=== PATIENT | female | born 1960 | race Caucasian/White ===

== ENCOUNTER → 2017-02-21 | Outpatient (CLI) | payer OTHER ==
--- NOTE | 2017-02-21 23:38 | US ---
EXAMINATION TYPE: Ultrasound MSK right ankle, posterior tibial tendon DATE OF EXAM: 02/21/2017 COMPARISON: NONE CLINICAL HISTORY: 56-year-old female posterior tibial tendon dysfunction M76.821. Technique: Multiple sonographic images of the medial right ankle for assessment of the posterior tibi al tendon. FINDINGS: Along the supramalleolar portion, there is spurring involving the anterior cortical margin of the dis celestine tibia along the course of the posterior tibial tendon. The tendon is thickened with some correspo nding thickening of the surrounding tenosynovium as well. At the malleolus and inframalleolar segments, the tendon remains thickened with moderate vertebral sy novial fluid and thickening nodules of synovium that show some hyperemia. There is a short segment partial split tear of the inframalleolar portion, refer to page 26 of 67. It appears that some of the distal fibers insert onto an ossicle. Additional fibers coursing beyond t he ossicle and are hypoechoic and heterogeneous containing some echogenic areas, refer to page 55 and 65 of 67. IMPRESSION: 1. Posterior tibial tendinosis with a moderate tenosynovitis. 2. There is a short segment partial split within the inframalleolar segment. No sizable or retracted tear is seen. 3. More marked tendinosis of the insertional fibers. Radiographic correlation is recommended for poss ible accessory navicular versus any potential calcifications at the insertional fibers which could re late to entities such as gout.
== END | disposition home or self-care (01) ==
LOC: RADUSWWP 10:39
PROVIDERS: ATTEND Podiatrist Foot & Ankle Surgery
DX: M76.821 Posterior tibial tendinitis, right leg (principal); M65.871 Other synovitis and tenosynovitis, right ankle and foot

== ENCOUNTER → 2018-07-29 | Outpatient (CLI) | payer BC ==
[2018-07-29 10:26] VITALS: BP 135/75; PULSE 71; RESP 18; TEMP 97; BMI 39.1
--- NOTE | 2018-07-29 11:07 | P.HPOB ---
History of Present Illness H&P Date: 07/29/18 Chief Complaint: The patient is here for her routine gynecologic exam and mammogram. This is a 57-year-old with an LMP of 1988. She is status post vaginal hysterectomy for prolapse. It has been about 2 years since her last pelvic exam. She is without gynecologic complaints. Review of Systems The patient's weight has been stable over the last year. She denies respiratory , cardiac, or G.I. problems. Past Medical History Past Medical History: Asthma (Mild), GERD/Reflux, Hypertension, Thyroid Disorder (Hypothyroid) Additional Past Medical History / Comment(s): Diverticulosis. 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 History of Any Multi-Drug Resistant Organisms: None Reported Past Surgical History: Hysterectomy (Vaginal hysterectomy 1988) Additional Past Surgical History / Comment(s): Bladder suspension. Foot surgery. Past Psychological History: No Psychological Hx Reported Smoking Status: Never smoker Past Alcohol Use History: None Reported Past Drug Use History: None Reported Additional History: She is and is not seeing anybody at this time. She works at [employer] in [place]. - Past Family History Mother Family Medical History: Cancer Additional Family Medical History / Comment(s): Lung cancer. Father Family Medical History: Myocardial Infarction ([place]) Additional Family Medical History / Comment(s): Abdominal aortic aneurysm. Sister(s) Family Medical History: Cancer Additional Family Medical History / Comment(s): Colon And gastric cancer. Another sister had diabetes. Medications and Allergies Home Medications Medication Instructions Recorded Confirmed Type Albuterol Inhaler [Ventolin Hfa 1 - 2 puff INHALATION RT-Q6H PRN 07/29/18 History Inhaler] Levothyroxine Sodium 25 mcg PO 07/29/18 History Lisinopril [Zestril] 10 mg PO DAILY 07/29/18 07/29/18 History Magnesium Oxide 400 mg PO 07/29/18 History Fulton-3 Fatty Acids [Fulton-3] 1,000 mg PO 07/29/18 History Omeprazole 20 mg PO 07/29/18 History Allergies Allergy/AdvReac Type Severity Reaction Status Date / Time iodine Allergy Swelling Unverified 07/29/18 10:17 NSAIDS (Non-Steroidal Allergy Rash/Hives Unverified 07/29/18 10:17 Anti-Inflamma Penicillins Allergy Rash/Hives Unverified 07/29/18 10:17 Sulfa (Sulfonamide Allergy Rash/Hives Unverified 07/29/18 10:17 Antibiotics) Exam Vital Signs Temp Pulse Resp BP Pulse Ox 07/29/18 10:23 97 F L 71 18 135/75 97 Intake and Output 07/28/18 07/29/18 07/29/18 22:59 06:59 14:59 Other: Weight 113.398 kg Height 5'7", weight 250 pounds, BMI 39.2. This is a well-developed well-nourished heavyset white female who is alert and oriented times 3 in no acute distress. HEENT: Within normal limits. NECK: Supple without mass or thyromegaly. CHEST AND LUNGS: Clear to auscultation. HEART: Regular rate and rhythm. BREASTS: Are without mass or discharge. AXILLARY EXAM: Negative for adenopathy. BACK: Negative for CVA tenderness. ABDOMEN: Soft, obese, nontender, without palpable masses. PELVIC EXAM: External genitalia appears normal with mild atrophy. Vagina appears normal atrophy. There is a grade 2 enterocele noted just posterior to the vaginal cuff. There is no evidence of cystocele or rectocele. Bimanual examination is negative for mass or tenderness. RECTAL EXAM: Rectovaginal exam is negative for mass or tenderness and is negative for occult blood. EXTREMITIES: Nontender. IMPRESSION: 1. 57-year-old menopausal female status post vaginal hysterectomy for benign reasons. 2. Asymptomatic grade 2 enterocele. PLAN: 1. Pap smears have been discontinued. 2. Self breast awareness was discussed with the patient. 3. Screening mammogram will be done today. 4. Osteoporosis prevention was discussed. I have stressed the importance of adequate calcium, vitamin D and regular exercise. Recommended amounts of calcium and vitamin D were also discussed. We will plan on doing the bone density again next year since she states she had a normal one done 5 years ago. 5. She will return in one year for her annual woman exam.
--- NOTE | 2018-07-30 11:36 | MM ---
Reason for exam: screening (asymptomatic). Last mammogram was performed 2 years and 1 month ago. History: Patient is postmenopausal. Benign cyst aspiration of the left breast, 2000. Physical Findings: A clinical breast exam by your physician is recommended on an annual basis and results should be correlated with mammographic findings. MG 3D Screening Mammo W/Cad Bilateral CC and MLO view(s) were taken. Prior study comparison: June 20, 2016, mammogram, performed at [facility]. June 21, 2014, mammogram, performed at [facility]. June 16, 2014, mammogram, performed at [facility]. June 06, 2011, bilateral digital screening mammo w/CAD. April 04, 2010, bilateral digital screening mammogram. There are scattered fibroglandular densities. There is no discrete abnormality. ASSESSMENT: Negative, BI-RAD 1 RECOMMENDATION: Routine screening mammogram of both breasts in 1 year.
== END | disposition home or self-care (01) ==
LOC: WWCWWP 09:48
PROVIDERS: ATTEND Obstetrics & Gynecology
DX: Z12.31 Encounter for screening mammogram for malignant neoplasm of breast (principal)
CPT/HCPCS: 77063; 77067

== ENCOUNTER → 2019-02-03 | Outpatient (CLI) | payer BC ==
--- NOTE | 2019-02-03 11:03 | BD ---
EXAMINATION TYPE: Axial Bone Density DATE OF EXAM: 02/03/2019 COMPARISON: None at this institution CLINICAL HISTORY: Z 78.0 Height: 5 FT 7 1/2 IN Weight: 249 FRAX RISK QUESTIONS: History of Fracture in Adulthood: YES Secondary Osteoporosis: RISK FACTORS HISTORY OF: Active: YES Postmenopausal woman: PART HYST AGE 28 MEDICATIONS: Thyroid Medications: YES Which medication: LEVOTHYROXINE How Long: APPROX 3 MONTHS AGO Additional Medications: LISINOPRIL ,LEVOTHYROXINE, Additional History: BILAT CARPAL TUNNEL SURG EXAM MEASUREMENTS: Bone mineral densitometry was performed using the [employer] System. Bone mineral density as measured about the Lumbar spine is: ----- L1-L4(G/cm2): 1.315 T Score Values are as follows: ----- L2: 0.8 ----- L3: 1.4 ----- L4: 2.0 ----- L1-L4: 1.1 [facility] Bone mineral density about the R hip (g/cm2): 0.965 Bone mineral density about the L hip (g/cm2): 0.987 T Score values are as follows: -----R Neck: -0.5 -----L Neck: -0.4 -----R Total: 0.2 -----L Total: 0.1 [facility] IMPRESSION: Normal (Values between +1 and -1 indicate normal bone mass). Consider repeating this study in 5 year s or sooner if there is some new clinical indication. NOTE: T-SCORE=SD OF THE YOUNG ADULT MEAN.
== END | disposition home or self-care (01) ==
LOC: RADBDWWP 08:39
PROVIDERS: ATTEND Family Medicine
DX: Z78.0 Asymptomatic menopausal state (principal)
CPT/HCPCS: 77080

== ENCOUNTER → 2020-12-05 | Outpatient (CLI) | payer BC ==
--- NOTE | 2020-12-07 08:31 | MM ---
Reason for exam: screening (asymptomatic). Last mammogram was performed 2 years and 4 months ago. History: Patient is postmenopausal. Benign cyst aspiration of the left breast, 2000. Physical Findings: A clinical breast exam by your physician is recommended on an annual basis and results should be correlated with mammographic findings. MG 3D Screening Mammo W/Cad Bilateral CC and MLO view(s) were taken. Prior study comparison: July 29, 2018, bilateral MG 3d screening mammo w/cad. June 20, 2016, mammogram, performed at [facility]. There are scattered fibroglandular densities. No significant changes when compared with prior studies. ASSESSMENT: Benign, BI-RAD 2 RECOMMENDATION: Routine screening mammogram of both breasts in 1 year.
== END | disposition home or self-care (01) ==
LOC: RADMAMWWP 12:37
PROVIDERS: ATTEND Internal Medicine Geriatric Medicine
DX: Z12.31 Encounter for screening mammogram for malignant neoplasm of breast (principal); Z78.0 Asymptomatic menopausal state
CPT/HCPCS: 77063; 77067

== ENCOUNTER → 2022-04-30 | Outpatient (CLI) | payer BC ==
[2022-04-30 15:02] LABS: Anion Gap 9.6 mmol/L (10.00-18.00); Carbon Dioxide 24.7 mmol/L (20.0-27.5); Non-African American GFR(CKD) 76.8 (60.0-200.0); Potassium 4.7 mmol/L (3.5-5.5)
[2022-04-30 15:24] LABS: Basophils # (A) 0.04 X 10*3/uL (0.00-0.10); Basophils % (A) 0.6 %; Eosinophils # (A) 0.14 X 10*3/uL (0.04-0.35); Eosinophils % (A) 2.1 %; HCT 39.2 % (37.2-46.3); HGB 12.1 g/dL (12.0-15.0); Immature Grans, Automated 0.4 %; Lymphocytes # (A) 2.23 X 10*3/uL (0.90-5.00); Lymphocytes % (A) 32.9 %; MCH 29.7 pg (27.0-32.0); MCHC 30.9 g/dL (32.0-37.0); MCV 96.1 fL (80.0-97.0); Mean Platelet Volume 11.3 fL (9.5-12.2); Monocytes # (A) 0.47 X 10*3/uL (0.20-1.00); Monocytes % (A) 6.9 %; NRBC Per 100 WBC 0 /100 WBCS (0.0-0.0); Neutrophils # (A) 3.86 X 10*3/uL (1.80-7.70); Neutrophils % (A) 57.1 %; Platelet Count 258 X 10*3/uL (140-440); RBC 4.08 X 10*6/uL (4.10-5.20); RDW 13.5 % (11.5-14.5); WBC 6.77 X 10*3/uL (4.50-10.00)
== END | disposition home or self-care (01) ==
LOC: LABPAT 10:14
PROVIDERS: ATTEND Obstetrics & Gynecology
DX: Z01.812 Encounter for preprocedural laboratory examination (principal); I10 Essential (primary) hypertension; N81.6 Rectocele
CPT/HCPCS: 80051; 82565; 82947; 84520; 85025; 87086; 93005

== ENCOUNTER 2022-05-08 08:13 | Day surgery (SDC) | payer BC ==
[2022-05-03 10:14] VITALS: BMI 34.7
--- NOTE | 2022-05-07 13:09 | HP ---
HISTORY AND PHYSICAL OR note for 05/08/22. HISTORY OF PRESENT ILLNESS: This is a 61-year-old female, who presents with an increasingly symptomatic rectocele. She has used a pessary in the past, but at this time is requesting permanent surgical repair. In addition, she saw Dr. Christy, who discussed possible sling procedure at the time of repair, and his recommendation was negative for sling procedure. She has had a previous vaginal hysterectomy for prolapse. REVIEW OF SYSTEMS: Otherwise, negative. PAST MEDICAL HISTORY: Significant for asthma, hypertension, and thyroid disease. PAST SURGICAL HISTORY: Vaginal hysterectomy in 1988 for prolapse, herniorrhaphy repair in 2013, and ankle surgery in 2018. CURRENT MEDICATIONS: 1. Calcium daily. 2. Levothyroxine 25 mcg daily. 3. Lisinopril 10 mg daily. 4. Paroxetine 10 mg daily. 5. Trazodone 100 mg at bedtime. ALLERGIES: Include Flexeril, iodine, penicillins, and nonsteroidal medications. No allergic reactions have been stated. FAMILY HISTORY: Significant for heart disease, lung cancer, and colon cancer. REPRODUCTIVE HISTORY: Normal spontaneous vaginal deliveries x2, 1976 and 1980, both unremarkable. SOCIAL HISTORY: The patient has never been a smoker. She does not use vaping, drug, or alcohol use. She does drink coffee daily. PHYSICAL EXAMINATION: VITAL SIGNS: The patient is 5 feet 7 inches, 232 pounds, blood pressure 140/100. HEENT: Exam reveals no thyromegaly. No cervical lymphadenopathy. Trachea midline. CHEST: Clear to auscultation in all lozada anteriorly and posteriorly. BREASTS: Exam reveals normal to inspection. No obvious skin changes, nipple discharge, axillary adenopathy, or discernible lesions or masses. CARDIAC: Reveals regular rate and rhythm with no murmur, click, or rub. ABDOMEN: Moderately obese. No organosplenomegaly. No CVA tenderness. PELVIC: External genitalia are well estrogenized. Vaginal vault reveals no obvious cystocele. Grade 3 rectocele noted. Adnexa are negative to palpation. There are no external hemorrhoids. FIT-negative stool sample is noted. Good sphincter tone. No lymphadenopathy is present. NEUROLOGIC: Reveals grossly oriented. Normal mood and affect. IMPRESSION: Increasingly symptomatic grade 3 rectocele, wishing surgical repair. PLAN: We have discussed other options. We reviewed the risks of surgery to include but not be exclusive of bleeding, infection, perforation or damage to the rectal wall, ureters, or urethra. Risks of anesthesia, aspiration, nerve damage, and even have all been discussed. Second opinion is offered and declined. We will proceed with rectocele repair at [facility] on 05/08/22. MMMEGL / IJN: [id number] /
[~2022-05-08 08:13] MED LIST: DEXAMETHASONE SOD PHOSPHATE 4 MG/ML 1 ML VIAL IV ONE; HYDROmorphone 0.5 MG/0.5 ML SYRINGE IVP PRN; ONDANSETRON 4 MG/2 ML VIAL IVP ONE
[2022-05-08] MEDS: LACTATED RINGERS 1,000 ML IV SCH ×2 (08:59→20:04)
[2022-05-08] MEDS ORDERED: MIDAZOLAM 2 MG/2 ML VIAL IV ONE (09:20)
[2022-05-08] MEDS ORDERED: SUCCINYLCHOLINE CHLORIDE 200 MG/10 ML VIAL IV ONE (10:00)
[2022-05-08] MEDS ORDERED: LIDOCAINE 2% INJ 20 MG/ML (2 ML VIAL) ONE (10:00)
[2022-05-08] MEDS ORDERED: PROPOFOL 10 MG/ML 20 ML VIAL IV ONE (10:00)
[2022-05-08] MEDS ORDERED: MORPHINE SULFATE (PF) 0.3 MG/0.3 ML SYR ONE (10:00)
[2022-05-08] MEDS ORDERED: fentaNYL (PF) 50 MCG/ML 2 ML AMP ONE (10:00)
[2022-05-08] MEDS ORDERED: MIDAZOLAM 2 MG/2 ML VIAL ONE (10:00)
[2022-05-08] MEDS ORDERED: BACITRACIN ZINC 500 UNIT/GM OINT 28.4 GM TUBE TOPICAL ONE (10:51)
[2022-05-08] MEDS ORDERED: VASOPRESSIN 20 UNIT/ML 1 ML VIAL IM ONE (10:51)
[2022-05-08] MEDS ORDERED: diphenhydrAMINE 50 MG/ML 1 ML VIAL IVP PRN (11:13)
[2022-05-08] MEDS ORDERED: ONDANSETRON 4 MG/2 ML VIAL IVP PRN (11:13)
[2022-05-08] MEDS ORDERED: SIMETHICONE 80 MG CHEWABLE PO PRN (11:13)
[2022-05-08] MEDS ORDERED: METOCLOPRAMIDE 5 MG/ML 2 ML VIAL IVP PRN (11:13)
--- NOTE | 2022-05-08 11:13 | P.OP ---
Date of Procedure: 05/08/22 Preoperative Diagnosis: Symptomatic grade 3-4 rectocele Postoperative Diagnosis: Same, enterocele Procedure(s) Performed: Rectocele repair Anesthesia: LAURIA Surgeon: Vidya Bella Tobacco Hanger #1: Jose Elais Rush Estimated Blood Loss (ml): 75 IV fluids (ml): 300 Urine output (ml): 120 Pathology: none sent Condition: stable Disposition: PACU Description of Procedure: Patient is brought to the operating suite where a general anesthetic is administered after spinal with Duramorph has been placed. Antibiotics are given. She's placed in the dorsal lithotomy position. The vagina and perineal bodies are all prepped and draped in the usual sterile fashion. Sequential ITZEL stockings are placed. The appropriate timeout is performed to assure proper patient and procedural identification. The bladder is drained for approximately 120 mL of clear yellow urine. A triangular portion of tissue is removed from the perineal body with a scalpel. The posterior vaginal mucosa is injected with a dilute Pitressin solution. Metzenbaum scissors are used in the midline to undermine the mucosa to the apex of the defect. The edges are held with Allis clamps and a fanlike fashion. Sponge rolled finger is used to sweep the underlying fascial plane from the overlying mucosa. 2-0 Vicryl sutures used in an interrupted fashion to bring the edges of the fascia together thereby completely eliminating the rectocele. At the apex of the rectocele a small cystocele was also encountered. This is well approximated with interrupted sutures. Metzenbaum scissors are used to trim the redundant mucosa. 2-0 Vicryl is used in a running locking fashion to close the posterior vaginal wall. Episiotomy- like repair is done to completion. Stitch line is inspected, noted to be clean and dry. Vagina is packed with one-inch iodophor gauze with basic tracing. Sotelo catheter is placed, urine is clear. Rectal exam reveals no foreign bodies or defects. All sponge needle and enhancement counts are correct at the end of the procedure. Total estimated blood loss 75 mL, fluid replacement 300 mL, urine 120 mL plus. Patient is brought back to the recovery room in very good condition with stable vital signs including blood pressure 109/65, pulse 46, 98% O2 saturation.
[2022-05-08 11:22] VITALS: RESP 16
[2022-05-08] MEDS: SENNOSIDES-DOCUSATE SODIUM 1 EACH TAB PO SCH (20:05)
[2022-05-09] MEDS: LACTATED RINGERS 1,000 ML IV SCH (04:21)
[2022-05-09] MEDS: SENNOSIDES-DOCUSATE SODIUM 1 EACH TAB PO SCH (07:43)
[2022-05-09 07:48] VITALS: BP 111/69; PULSE 56; TEMP 98.8
--- NOTE | 2022-05-09 08:09 | P.DS ---
Providers Date of admission: 05/09/22 Attending physician: Vidya Bella Primary care physician: [facility] Course: This is a 61-year-old female who presented with increasingly symptomatic grade 3-4 rectocele, requesting surgical repair. Please see my dictated history and physical for details. Yesterday patient underwent rectocele repair, vaginal packing was placed along with Sotelo catheter. She did very well intraoperatively, received a spinal with Duramorph with excellent results. No unusual findings in the operating room, please see my dictated operative note for details. This morning the patient is doing well. She is voiding, ambulating, and has minimal vaginal discharge. She has no pain. Vital signs are stable and she has remained afebrile. Patient is judged to be in very good condition for discharge home. She is reminded to keep the bowels moving, Metamucil daily, increase fruits and vegetables and fiber, increased water and walking. She will use [id number] Tylenol products as needed for pain. No intercourse, tampons, heavy lifting or activities. She will call me with any vaginal bleeding, pain not alleviated by [id number] products, difficulties with defecation, or indeed with any concerns. Follow-up in the office in 2 weeks. Assessment: Doing well first postoperative day Patient Condition at Discharge: Good Plan - Discharge Summary Discharge Rx Participant: No New Discharge Prescriptions: No Action lisinopriL [Zestril] 10 mg PO DAILY Levothyroxine Sodium 25 mcg PO DAILY PARoxetine [Paxil] 10 mg PO HS Calcium Carb/Mag Ox/Zinc Sulf [Oyo-Nzs-Pgbu 334-134-5 mg Tab] 1 each PO HS traZODone HCL [Desyrel] 100 mg PO HS Glucosamine/Chondr Conley A Sod [Osteo Bi-Flex Caplet] 1 each PO DAILY Discharge Medication List Levothyroxine Sodium 25 mcg PO DAILY 07/29/18 [History] lisinopriL [Zestril] 10 mg PO DAILY 07/29/18 [History] Calcium Carb/Mag Ox/Zinc Sulf [Eqq-Ovw-Oina 334-134-5 mg Tab] 1 each PO HS 05/03/22 [History] Glucosamine/Chondr Conley A Sod [Osteo Bi-Flex Caplet] 1 each PO DAILY 05/03/22 [History] PARoxetine [Paxil] 10 mg PO HS 05/03/22 [History] traZODone HCL [Desyrel] 100 mg PO HS 05/03/22 [History] Follow up Appointment(s)/Referral(s): Vidya Bella MD [STAFF PHYSICIAN] - 2 Weeks Discharge Disposition: HOME SELF-CARE
[2022-05-09] MEDS ORDERED: ACETAMINOPHEN TAB 325 MG TAB PO PRN (11:14)
--- NOTE | 2022-05-10 19:46 | P.PN ---
Progress Note - Text 05/09/22 638am 61-year-old female status post rectocele repair by Dr. Bella. Patient seen and evaluated for postop pain control, she has a VAS of 3 with no complains of nausea vomiting or pruritus.
== END 2022-05-09 11:59 | disposition home or self-care (01) ==
LOC: OR 08:13 → 4FBP 10:53 → OR 05-09 11:59
PROVIDERS: ATTEND Obstetrics & Gynecology
DX: N81.6 Rectocele (principal); E07.9 Disorder of thyroid, unspecified; I10 Essential (primary) hypertension; J45.909 Unspecified asthma, uncomplicated; Z80.1 Family history of malignant neoplasm of trachea, bronchus and lung; Z82.49 Family history of ischemic heart disease and other diseases of the circulatory system; Z88.0 Allergy status to penicillin; Z88.8 Allergy status to other drugs, medicaments and biological substances; Z79.899 Other long term (current) drug therapy; Z79.890 Hormone replacement therapy
CPT/HCPCS: 86900; 86901; 86850; 45560; J2250; J1200; J1100; J2765; J0690; J2405

== ENCOUNTER → 2022-08-17 | Outpatient (CLI) | payer BC ==
--- NOTE | 2022-08-20 08:06 | MM ---
Reason for Exam: Screening (asymptomatic). Last mammogram was performed 1 year(s) and 8 month(s) ago. Patient History: Menarche at age 11. First Full-Term at age 16. Hysterectomy at age 28. Postmenopausal. 2000, Benign Cyst Aspiration on the left side. Risk Values: Joya 5 year model risk: 1.1%. NCI Lifetime model risk: 5.0%. Prior Study Comparison: 06/20/2016 Screening Mammogram, [facility]. 07/29/2018 Bilateral Screening Mammogram, [facility]. 12/05/2020 Bilateral Screening Mammogram, [facility]. Tissue Density: The breast tissue is heterogeneously dense. This may lower the sensitivity of mammography. Findings: Analyzed By CAD. There is no suspicious group of microcalcifications or new suspicious mass in either breast. Overall Assessment: Negative, BI-RAD 1 Management: Screening Mammogram of both breasts in 1 year. A clinical breast exam by your physician is recommended on an annual basis and results should be correlated with mammographic findings. Electronically signed and approved by: Pro Stover M.D. Radiologis
== END | disposition home or self-care (01) ==
LOC: RADMAMWWP 11:40
PROVIDERS: ATTEND Internal Medicine Geriatric Medicine
DX: Z12.31 Encounter for screening mammogram for malignant neoplasm of breast (principal); Z78.0 Asymptomatic menopausal state
CPT/HCPCS: 77063; 77067

== ENCOUNTER → 2023-01-15 | Day surgery (SDC) | payer BC ==
[2023-01-10 10:41] VITALS: BMI 31.8
[~2023-01-15] MED LIST changes: -DEXAMETHASONE SOD PHOSPHATE 4 MG/ML 1 ML VIAL IV ONE; -HYDROmorphone 0.5 MG/0.5 ML SYRINGE IVP PRN; +LACTATED RINGERS 1,000 ML IV ONE; +LACTATED RINGERS 1,000 ML IV SCH; -ONDANSETRON 4 MG/2 ML VIAL IVP ONE; +PROPOFOL 10 MG/ML 20 ML VIAL IV ONE
[2023-01-15 11:14] VITALS: TEMP 98
--- NOTE | 2023-01-15 11:28 | P.GSHP ---
History of Present Illness H&P Date: 01/15/23 Chief Complaint: Colon cancer screening 62-year-old female here for colonoscopy. Last colonoscopy 10 years ago or so. Family history of colon cancer in her sister. No bowel complaints. Past Medical History Past Medical History: Asthma, GERD/Reflux, Hypertension, Thyroid Disorder Additional Past Medical History / Comment(s): Diverticulosis. History of Any Multi-Drug Resistant Organisms: None Reported Past Surgical History: Hysterectomy Additional Past Surgical History / Comment(s): Bladder suspension, Foot surgery, rectocele repair Past Anesthesia/Blood Transfusion Reactions: No Reported Reaction Past Psychological History: No Psychological Hx Reported Smoking Status: Never smoker Past Alcohol Use History: None Reported Past Drug Use History: None Reported - Past Family History Mother Family Medical History: Cancer Additional Family Medical History / Comment(s): Lung cancer. Father Family Medical History: Myocardial Infarction ([place]) Additional Family Medical History / Comment(s): Abdominal aortic aneurysm. Sister(s) Family Medical History: Cancer Additional Family Medical History / Comment(s): Colon And gastric cancer. Another sister had diabetes. Medications and Allergies Home Medications Medication Instructions Recorded Confirmed Type Levothyroxine Sodium 25 mcg PO DAILY 07/29/18 01/15/23 History lisinopriL [Zestril] 10 mg PO DAILY 07/29/18 01/15/23 History Calcium Carb/Mag Ox/Zinc Sulf 1 each PO HS 05/03/22 01/15/23 History [Fuf-Rmd-Kkey 334-134-5 mg Tab] Glucosamine/Chondr Conley A Sod [Osteo 1 each PO DAILY 05/03/22 01/15/23 History Bi-Flex Caplet] PARoxetine [Paxil] 10 mg PO HS 05/03/22 01/15/23 History traZODone HCL [Desyrel] 100 mg PO HS 05/03/22 01/15/23 History Allergies Allergy/AdvReac Type Severity Reaction Status Date / Time iodine Allergy Swelling Verified 01/15/23 11:15 NSAIDS (Non-Steroidal Allergy Rash/Hives Verified 01/15/23 11:15 Anti-Inflamma Penicillins Allergy Rash/Hives Verified 01/15/23 11:15 Sulfa (Sulfonamide Allergy Rash/Hives Verified 01/15/23 11:15 Antibiotics) Surgical - Exam Vital Signs Temp Pulse Resp BP Pulse Ox 98 F 65 16 153/70 98 08/22/23 11:13 01/15/23 11:13 01/15/23 11:13 01/15/23 11:13 01/15/23 11:13 Physical exam: General: Well-developed, well-nourished HEENT: Normocephalic, sclerae nonicteric Abdomen: Nontender, nondistended Extremities: No edema Neuro: Alert and oriented Assessment and Plan (1) Colon cancer screening Narrative/Plan: Will proceed with colonoscopy at this time. Current Visit: Yes Status: Acute Code(s): Z12.11 - ENCOUNTER FOR SCREENING FOR MALIGNANT NEOPLASM OF COLON SNOMED Code(s): 480534513
--- NOTE | 2023-01-15 11:44 | P.PCN ---
Date of Procedure: 01/15/23 Procedure(s) Performed: PREOPERATIVE DIAGNOSIS: Colon cancer screening, family history POSTOPERATIVE DIAGNOSIS: Transverse colon polyp, diverticulosis PROCEDURE: Colonoscopy with snare polypectomy ANESTHESIA: MAC SURGEON: Kurtis Chaudhari M.D. SPECIMENS: Transverse colon polyp ENDOSCOPIC PROCEDURE: The patient was placed on the endoscopy table in the left decubitus position. The Olympus colonoscope was inserted into the anus and passed under direct visualization to the base of the cecum. The appendiceal orifice was visualized. From that point the scope was slowly withdrawn inspecting all surfaces carefully. There were no neoplastic inflammatory or polypoid lesions throughout the cecum or ascending colon. In the transverse colon a small polyp was seen and removed using the snare with cautery technique. The remainder the transverse descending sigmoid and rectum appeared normal. There was extensive left-sided diverticulosis. Digital rectal examination was normal. The patient was taken to the recovery room in stable condition per anesthesia guidelines. RECOMMENDATIONS: Await biopsy results. Repeat colonoscopy 5 years.
[2023-01-15 11:52] VITALS: RESP 14
[2023-01-15 12:13] VITALS: BP 139/72; PULSE 49
== END ==
LOC: ORWHC2ENDO 10:46
PROVIDERS: ATTEND Surgery
DX: Z12.11 Encounter for screening for malignant neoplasm of colon (principal); K63.5 Polyp of colon; J45.909 Unspecified asthma, uncomplicated; K21.9 Gastro-esophageal reflux disease without esophagitis; I10 Essential (primary) hypertension; E07.9 Disorder of thyroid, unspecified; Z80.0 Family history of malignant neoplasm of digestive organs; Z98.890 Other specified postprocedural states; Z80.1 Family history of malignant neoplasm of trachea, bronchus and lung; Z82.49 Family history of ischemic heart disease and other diseases of the circulatory system; Z83.3 Family history of diabetes mellitus; Z88.6 Allergy status to analgesic agent; Z88.2 Allergy status to sulfonamides; Z79.899 Other long term (current) drug therapy; Z88.0 Allergy status to penicillin
CPT/HCPCS: 45385; J2704; 88305

== ENCOUNTER → 2023-12-31 | Outpatient (CLI) | payer BC ==
--- NOTE | 2024-01-23 09:59 | MM ---
Reason for Exam: Screening (asymptomatic). Last mammogram was performed 1 year(s) and 5 month(s) ago. Patient History: Menarche at age 11. First Full-Term at age 16. Hysterectomy at age 28. Postmenopausal. 2000, Benign Cyst Aspiration on the left side. Risk Values: Joya 5 year model risk: 1.2%. NCI Lifetime model risk: 4.7%. Prior Study Comparison: 07/29/2018 Bilateral Screening Mammogram, [facility]. 12/05/2020 Bilateral Screening Mammogram, [facility]. 08/17/2022 Bilateral MG 3D screening mammo w/cad, [facility]. Tissue Density: The breasts are heterogeneously dense, which may obscure small masses. Findings: Analyzed By CAD. Right breast: There is no suspicious group of microcalcifications or new suspicious mass. Left breast: There is no suspicious group of microcalcifications or new suspicious mass. Overall Assessment: Negative, BI-RAD 1 Management: Screening Mammogram of both breasts in [address] [facility] will attempt to contact patient to return for supplemental views and ultrasound if indicated. Patient should continue monthly self-breast exams. A clinical breast exam by your physician is recommended on an annual basis. This exam should not preclude additional follow-up of suspicious palpable abnormalities. Note on Joya scores and lifetime risk: 1. A Joya score greater than 3% is considered moderate risk. If this is the case, consider specialist referral to assess eligibility for a risk reducing agent. 2. If overall lifetime risk for the development of breast cancer is 20% or higher, the patient may qualify for future screening with alternating mammogram and breast MRI. Electronically signed and approved by: Den More DO
--- NOTE | 2024-02-21 19:06 | BD ---
EXAMINATION TYPE: Axial Bone Density DATE OF EXAM: 02/20/2024 CLINICAL HISTORY: 63 years old Female. ICD-10 CODE: M89.9 BONE DENSITY Height: 5 ft 7 in Weight: 216 FRAX RISK QUESTIONS: Alcohol (3 or more units per day): no Family History (Parent hip fracture): no Glucocorticoids (More than 3mos): no (Ex: prednisone, prednisolone, methylprednisolone, dexamethasone, and hydrocortisone). History of Fracture in Adulthood: no Secondary Osteoporosis: 1. Type 1 Diabetes: no 2. Hyperthyroidism: no 3. Menopause before 45: no 4. Malnutrition: no 5. Chronic liver disease: no Rheumatoid Arthritis: no Current Tobacco Use: no RISK FACTORS HISTORY OF: Surgery to Spine/Hip(right/left)/Wrist (right/left): no MEDICATIONS: Thyroid Medications: yes Which medication: synthroid How Long: over 40 years Osteoporosis Medications: none EXAM MEASUREMENTS: Bone mineral densitometry was performed using the [employer] System. Bone mineral density as measured about the Lumbar spine is: ----- L1-L4(G/cm2): 1.365 T Score Values are as follows: ----- L1: 0.0 ----- L2: 0.5 ----- L3: 2.2 ----- L4: 2.7 ----- L1-L4: 1.5 Z Score Values are as follows: ----- L1: 0.4 ----- L2: 0.9 ----- L3: 2.6 ----- L4: 3.1 ----- L1-L4: 2.0 Bone mineral density has: increased 3.8 % since study of: 2019 Bone mineral density about the R hip (g/cm2): 0.924 Bone mineral density about the L hip (g/cm2): 0.937 T Score values are as follows: -----R Neck: -0.8 -----L Neck: -0.7 -----R Total: -0.2 -----L Total: -0.3 Z Score values are as follows: -----R Neck: -0.1 -----L Neck: 0.0 -----R Total: 0.2 -----L Total: 0.0 Bone mineral density has: decreased -5.5 % since study of: 2019 FRAX%s: The graph provided illustrates a 11.9 % chance for a major osteoporotic fx and a 0.7 % chance for the hips probability for fx in 10 years time. IMPRESSION: Normal (Values between +1 and -1 indicate normal bone mass). Consider repeating this study in 5 year s or sooner if there is some new clinical indication. NOTE: T-SCORE=SD OF THE YOUNG ADULT MEAN. [facility], , 02/21/2024 7:04 PM
== END | disposition home or self-care (01) ==
LOC: RADBDWWP 10:52
PROVIDERS: ATTEND Internal Medicine Geriatric Medicine
DX: Z12.31 Encounter for screening mammogram for malignant neoplasm of breast (principal); R92.333 Mammographic heterogeneous density, bilateral breasts; Z78.0 Asymptomatic menopausal state; M89.9 Disorder of bone, unspecified
CPT/HCPCS: 77063; 77067